=== PATIENT | female | born 1935 | race Caucasian/White ===

== ENCOUNTER → 2017-01-23 | Outpatient (CLI) | payer MEDICARE ==
[~2017-01-23] MED LIST: ASPIRIN PO; CELEXA PO; LIPITOR PO; LISINOPRIL PO; LOPRESSOR PO; METHIMAZOLE10 MG PO; PAXIL PO; SYNTHROID PO; TRIAMTERENE PO; TRIAMTERENE/HCTZ PO; VICODIN PO
--- NOTE | ~2017-01-23 | US37 ---
[facility] A Service of [facility] RADIOLOGY TEXT RESULTS PATIENT: EMMANUEL MONROE LOCATION: SNIV : 33 UNIT #: [id number] AGE: [address]: Ilan Klein MD SEX: F ORDER DR: [id number] [address] [address] [id number] O MR#: [id number] Acc #: [id number] NAME: EMMANUEL MONROE : 1935 SEX: F STUDY DATE/TIME: 01/23/2017 10:29 UNIT: SNIV ROOM: STUDY DESCRIPTION: US Carotid W/Doppler Bilateral Attending Physician: Ilan Klein M.D. Referring Physician: Ilan Klein M.D. Ordering Physician: Ilan Klein M.D. Primary Care Physician: Ilan Klein M.D. MEDICAL IMAGING REPORT This report is preliminary unless electronic signature is present. EXAM Bilateral carotid duplex HISTORY Carotid bruit FINDINGS Duplex imaging of the carotid arteries was performed. The right common carotid artery is patent. Calcific plaque is seen in the origins of the internal and external carotid arteries on the right side. Velocity in the right common carotid is 57, internal is 51 and external is 146 cm/sec. Right ICA/CCA ratio is 0.9. On the left side, common carotid artery is patent. Calcific plaque with acoustic shadowing is seen in the left carotid bifurcation extending into the bulb and the internal and external carotid artery origins. Velocity in the left common carotid is 43, internal is 70 and external is 177 cm/sec. Left ICA/CCA ratio is 0.6. Antegrade flow is seen in the right and left vertebral arteries. IMPRESSION Plaque with less than 50% stenosis is seen in the right and left internal carotid arteries. Antegrade flow is seen in the right and left vertebral arteries. Dictated by.Dexter Kim M.D. THIS IS AN ELECTRONICALLY VERIFIED REPORT [facility] A Service of [facility] RADIOLOGY TEXT RESULTS PATIENT: EMMANUEL MONROE LOCATION: SNIV : 33 UNIT #: [id number] AGE: [address]: Ilan Klein MD SEX: F ORDER DR: Rafy Kim M.D. at 01/24/2017 7:15 AM /refugio TD: 01/23/2017 21:12 JOB #: [id number] MEDICAL IMAGING REPORT Page 1 of 1
== END | disposition home or self-care (01) ==
LOC: SNIV 09:57
DX: R09.89 Other specified symptoms and signs involving the circulatory and respiratory systems (principal); I65.23 Occlusion and stenosis of bilateral carotid arteries
CPT/HCPCS: 93880